=== PATIENT | male | born 2005 ===

== ENCOUNTER 2025-06-22 04:44 | Emergency (ER) | payer SELFPAY ==
[2025-06-22] MEDS ORDERED: Naloxone 0.4 MG/ML SDV IVPUSH PRN (05:03)
[2025-06-22] MEDS: Ondansetron 4 MG/2 ML SDV IV STA (05:39)
[2025-06-22] MEDS: Iopamidol 612 MG/ML 100 ML Bottle IVPUSH ONE (05:41)
[2025-06-22] MEDS: cefTRIAXone 1 GM in Water For Injection, Sterile 10 ML IVPUSH STA (05:41)
[2025-06-22] MEDS: Diphtheria,Pertussis(Acell),Tetanus Vaccine 0.5 ML Syringe IM ONE (05:43)
[2025-06-22] MEDS: Lidocaine 1% with EPINEPHrine 1:100,000 20 ML MDV INJECT ONE (06:36)
[2025-06-22 06:53] LABS: BASOPHILS ABSOLUTE AUTO 0.1 K/mm3 (0.0-0.3); BASOPHILS PERCENT AUTO 0.6 % (0.0-1.0); EOSINOPHILS ABSOLUTE AUTO 0.0 K/mm3 (0.0-0.7); EOSINOPHILS PERCENT AUTO 0.3 % (0.0-5.0); IMMATURE GRAN ABSOLUTE AUTO 0.16 K/mm3 (0.00-0.05); IMMATURE GRAN PERCENT AUTO 1.3 % (0.0-0.4); LYMPHOCYTES ABSOLUTE AUTO 3.7 K/mm3 (2.0-8.8); LYMPHOCYTES PERCENT AUTO 30.1 % (50.0-65.0); MEAN PLATELET VOLUME 10.5 fl (9.4-12.4); MONOCYTES ABSOLUTE AUTO 0.9 K/mm3 (0.1-1.4); MONOCYTES PERCENT AUTO 7.0 % (2.0-10.0); NEUTROPHILS ABSOLUTE AUTO 7.4 K/mm3 (1.5-8.5); NEUTROPHILS PERCENT AUTO 60.7 % (35.0-45.0); NRBC ABSOLUTE 0.00 (0.00-0.03); NRBC PERCENT 0.0 % (0.0-0.2); PLATELET COUNT,PLT 335 K/mm3 (150-400); RED BLOOD CELL COUNT 5.41 M/mm3 (4.52-5.90); WHITE BLOOD CELL COUNT,WBC 12.23 K/mm3 (4.5-13.5)
[2025-06-22 07:06] LABS: A/G RATIO 1.1 (1-2); ALANINE AMINOTRANSFERASE,ALT 14.0 U/L (16-63); ASPARTATE AMNIOTRANSFERASE,AST 22.0 U/L (15-37); BILIRUBIN TOTAL 0.5 mg/dL (0.2-1.0); BLOOD UREA NITROGEN,BUN 14.0 mg/dL (7-18); CARBON DIOXIDE,CO2 27.0 mEq/L (21-32); CHLORIDE,CL 103.0 mEq/L (98-107); CREATINE KINASE,CK 227.0 U/L (39-308); CREATININE 1.1 mg/dL (0.7-1.3); EST CRCL DRUG DOSING (CG) 125.58 mL/min; ESTIMATED GFR 99.0 mL/min (>60); GLUCOSE RANDOM 139.0 mg/dL (70-99); POTASSIUM,K 3.3 mEq/L (3.5-5.1); PROTEIN TOTAL,TP 7.4 g/dl (6.4-8.2); SODIUM,NA 142.0 mEq/L (136-145)
[2025-06-22 07:11] LABS: ETHANOL BLOOD MEDICAL 0.0 gm% (0.00)
[2025-06-22] MEDS: Acetaminophen/oxyCODONE 325-5 MG Tab PO STA (07:33)
== END 2025-06-22 07:40 | disposition home or self-care (01) ==
LOC: JD.ED 04:44
DX: S02.2XXB Fracture of nasal bones, initial encounter for open fracture (principal); S02.92XA Unspecified fracture of facial bones, initial encounter for closed fracture; S20.212A Contusion of left front wall of thorax, initial encounter; S80.12XA Contusion of left lower leg, initial encounter; S00.531A Contusion of lip, initial encounter; S00.33XA Contusion of nose, initial encounter; S80.812A Abrasion, left lower leg, initial encounter; S30.81AA Abrasion of flank, initial encounter; S20.312A Abrasion of left front wall of thorax, initial encounter; S08.0XXA Avulsion of scalp, initial encounter; W13.2XXA Fall from, out of or through roof, initial encounter
CPT/HCPCS: 36415; 70450; 70486; 71045; 72125; 73590; 74177; 80053; 80307; 82550; 85025; 90471; 90715; 96374; 96375; 96376; 99284; A9270; J0696; J1171; J2004; J2405; J7030; Q9967